=== PATIENT | male | born 1960 | race Hispanic/Latino ===

== ENCOUNTER 2019-02-11 10:49 | Day surgery (SDC) | payer BC ==
[2019-02-11] MEDS ORDERED: ZOFRAN IV PRN (11:56)
[2019-02-11] MEDS ORDERED: SUBLIMAZE IV PRN (11:56)
--- NOTE | 2019-02-11 11:59 | Anesthesia Day of Surgery ---
Anesthesia Day of Surgery - Day of Surgery Patient Examined: Yes Patient H&P Reviewed: Yes Patient is NPO: Yes
[2019-02-11] MEDS ORDERED: LACTATED RINGERS 1,000 ML IV SCH (12:00)
--- NOTE | 2019-02-11 12:01 | Anesthesia Consultation ---
Anesthesia Consult and Med Hx Date of service: 02/11/19 - Airway Anesthetic Teeth Evaluation: Good ROM Head & Neck: Inadequate Mental/Hyoid Distance: Adequate Mallampati Class: Class III Intubation Access Assessment: Probably Good - Pre-Operative Health Status ASA Pre-Surgery Classification: ASA2 Proposed Anesthetic Plan: General - Pulmonary Hx Smoking: Yes (STOPPED 2005) Hx Asthma: No SOB: No COPD: No Hx Sleep Apnea: No (MARION PRE SCREEN LOW RISK) - Cardiovascular System Hx Hypertension: No (NST last year ok per pt) - Central Nervous System Hx Back Pain: Yes (NECK PAIN WITH LIMITED ROM) Hx Psychiatric Problems: No - Gastrointestinal Hx Gastroesophageal Reflux Disease: Yes (diet related; Crohn's disease) - Endocrine Hx Renal Disease: Yes (renal stones. Stage 1 CKD) Hx Cirrhosis: No Hx Non-Insulin Dependent Diabetes: No Hx Thyroid Disease: No - Hematic Hx Anemia: No - Other Systems Hx Alcohol Use: Yes (OCCASIONAL) Hx Substance Use: No Hx Cancer: No Hx Obesity: No
[2019-02-11] MEDS ORDERED: VERSED IV NR (13:00)
[2019-02-11] MEDS ORDERED: XYLOCAINE MPF 2% ONE (13:42)
[2019-02-11] MEDS ORDERED: DIPRIVAN 10 MG/ML IV ONE (13:43)
[2019-02-11] MEDS ORDERED: SUBLIMAZE ONE (13:43)
[2019-02-11] MEDS ORDERED: LEVAQUIN 500MG/100ML 500 MG/100 ML BAG IV NR (14:09)
[2019-02-11] MEDS ORDERED: WATER FOR IRRIG STERILE IR ONE (14:32)
--- NOTE | 2019-02-11 15:17 | Short Stay Summary ---
Short Stay Documentation Date of service: 02/11/19 - History H&P: obtained from office - Allergies and Medications Current Medications: Allergies Penicillins Allergy (Verified 01/29/19 16:36) Rash sulfamethoxazole [From Bactrim] Allergy (Verified 01/29/19 16:36) Itching trimethoprim [From Bactrim] Allergy (Verified 01/29/19 16:36) Itching Home Medications Medication Instructions Recorded Confirmed Last Taken Type Tamsulosin [Flomax] 0.4 mg PO DAILY 06/03/14 01/29/19 02/10/19 16:00 History AtorvaSTATin [Lipitor] 10 mg PO QHS 01/29/19 01/29/19 02/10/19 16:00 History Zolpidem [Ambien] 10 mg PO QHS 01/29/19 01/29/19 02/10/19 16:00 History Active Medications Fentanyl (Sublimaze) 50 mcg IV Q5MIN PRN PRN Reason: Pain , Severe (7-10) Stop: 02/11/19 23:00 Lactated Ringer's (Lactated Ringers) 1,000 mls @ 125 mls/hr IV DIRECT JIMENEZ Last Admin: 02/11/19 12:40 Dose: 125 mls/hr Documented by: Levofloxacin/Dextrose (Levaquin 500mg/100ml) 500 mg in 100 mls @ 100 mls/hr IV PREOP NR; Protocol Stop: 02/11/19 23:00 Midazolam HCl (Versed) 2 mg IV PREOP NR Stop: 02/11/19 23:59 Last Admin: 02/11/19 12:40 Dose: 2 mg Documented by: Ondansetron HCl (Zofran) 4 mg IV ONCE PRN PRN Reason: Nausea And Vomiting - Physical exam General appearance: no acute distress - Brief post op/procedure progress note Date of procedure: 02/11/19 Pre-op diagnosis: inconcolusive cytol, abn ct ?bladder stone Post-op diagnosis: same Procedure: cysto, rpg, bladder bx Anesthesia: GETA Findings: mod lg lat lobes, lg median lobe, able to vis neno uo, rpg neg multiple passes could not see any signs of bladder wall stone or indention, on fluoro small radiopaque density prob in wall at suspected area from CT but much smaller Surgeon: ANGELA YI Estimated blood loss: minimal Pathology: list (bladder bx x3) Specimen disposition: to lab Condition: stable - Hospital course Hospital course: orpacuhome - Disposition Condition at discharge: Good Disposition: DC-01 TO HOME OR SELFCARE Short Stay Discharge Plan Activity: advance as tolerated Diet: advance as tolerated Follow up with: ANGELA YI MD [Staff Physician] - 7 Days
--- NOTE | 2019-02-11 15:52 | Fluoroscopy Report ---
FLUOROSCOPY RETROGRADE UROGRAPHY HISTORY: Bladder stone. 2.3 minutes of fluoroscopy time was provided by radiology during retrograde urography by the urologis t. 9 fluoroscopic images are presented. The images demonstrate normal filling of the renal collecting systems bilaterally. No evidence for filling defect or abnormal dilatation. Please correlate with e procedural report as needed. Signer Name: Jake Bhardwaj Jr, MD Signed: 02/11/2019 3:47 PM Workstation Name: [id number]
[2019-02-11] MEDS ORDERED: PERCOCET 5/325 PO ONE (16:20)
[2019-02-11] MEDS ORDERED: PERCOCET 5/325 ONE (16:26)
[2019-02-11 18:14] VITALS: BP 138/72
--- NOTE | 2019-02-11 22:39 | Post Anesthesia Evaluation ---
- Post Anesthesia Evaluation Patient Participated: Yes Airway Patent: Yes Stable Respiratory Function: Yes Nausea/Vomiting: No Temp > 96.8F: Yes Pain Manageable: Yes Adequeate Hydration: Yes Anesthesia Complications: No Block Receding Appropriately: Not Applicable Patient on Ventilator: No
--- NOTE | 2019-02-27 13:17 | Operative Report ---
PREOPERATIVE DIAGNOSIS: ____ cytology, benign prostatic hypertrophy. POSTOPERATIVE DIAGNOSIS: ____ cytology, benign prostatic hypertrophy. PROCEDURE: ____ bilateral RPG. FINDINGS: No visible stones ____ within the bladder wall with ____. At this point, bilateral RPGs with no signs of hydro, moderately large lateral lobes of the prostate and then moderately large median lobe, but able ____ bilateral UOs. SPECIMENS: Bladder biopsy x 3. ESTIMATED BLOOD LOSS: ____ COMPLICATIONS: None. CLINICAL INDICATIONS: Counseled RCBA, antibiotics, sequential compression devices. The patient had this reviewed. Benign prostatic hypertrophy, DVT with a stone in the left anterior bladder ____ multiple antibiotics, SCDs. DESCRIPTION OF PROCEDURE: The patient was transferred to the OR suite in supine position, anesthesia, dorsal lithotomy, prepped and draped in standard fashion. A 22-Portuguese scope passed. Normal penile urethra, bulbar urethra, prostatic urethra demonstrated lateral lobes, median lobe, which was prone to bleeding passed the scope ____ lateral to the left lobe ____. We were able to glide that pretty easily. At this point, ____ was done with 30 and 70 degree lens. We did this multiple times due to ____ finding of a possible left anterior ____ within the wall of the bladder looking for any signs of ____ inside the bladder lining versus other ____ that there would be suspicious due to the size. This was several centimeters ____ visible external compression , we were not able to see this at all. The scope ____ under fluoroscopic vision was used to basket out additionally on fluoroscopy ____ would have been a larger pelvis ____ did see a small calcification ____ area on the CT. At this point, it was elected on inspection of the bladder running high suspicion areas of the left lateral wall, right lateral posterior. There was some low suspicion area. At this point, flexible biopsy ____ right lateral biopsy was taken and surrounding areas were fulgurated. At this point, there was no active bleeding. Bladder was irrigated multiple times and then the scope was withdrawn. Exam under anesthesia, bilateral descended testicles, no masses. Prostate exam, no nodules. The patient was awakened and transferred to PACU in good and stable condition. JOB# [id number] ATS/NTS
== END 2019-02-11 10:50 | disposition home or self-care (01) ==
LOC: OR 10:49
PROVIDERS: ATTEND Urology
DX: N30.90 Cystitis, unspecified without hematuria (principal); N40.0 Benign prostatic hyperplasia without lower urinary tract symptoms; N21.0 Calculus in bladder; I12.9 Hypertensive chronic kidney disease with stage 1 through stage 4 chronic kidney disease, or unspecified chronic kidney disease; N18.1 Chronic kidney disease, stage 1; E78.00 Pure hypercholesterolemia, unspecified; K21.9 Gastro-esophageal reflux disease without esophagitis; Z87.442 Personal history of urinary calculi; Z87.891 Personal history of nicotine dependence; Z88.0 Allergy status to penicillin; Z88.8 Allergy status to other drugs, medicaments and biological substances; Z79.899 Other long term (current) drug therapy; Z90.49 Acquired absence of other specified parts of digestive tract; Z87.440 Personal history of urinary (tract) infections; Z72.89 Other problems related to lifestyle; Z98.890 Other specified postprocedural states
CPT/HCPCS: 52204; 74420; 88305; A4217; C1758; C1769; J1956; J2250; J2704; J3010; J7120; Q9967